=== PATIENT | female | born 1940 | race Caucasian/White ===

== ENCOUNTER 2017-07-16 11:14 | Observation (INO) | payer OTHER ==
[2017-07-16 11:19] VITALS: BMI 25.0
[2017-07-16] MEDS ORDERED: NIFEDIPINE CAP 10 MG ONE (11:42)
[2017-07-16] MEDS ORDERED: NIFEDIPINE CAP 10 MG PO ONE (11:42)
--- NOTE | 2017-07-16 11:55 | DR.GENAD ---
HPI - PCP Primary Care Physician: NFD - HPI Comment HPI Comment: PATIENT FELL FEW DAYS AGO AND INJURED LEFT HIP. EVALUATED AND NO FRACTURE. PAIN INCREASING. BEING VOMITING AND NOW WEAK. NO FEVER OR DYSURIA. - Complaint/Symptoms Chief Complaint Doctors Comments: N/V TIMES FEW DAYS. NOW WEAK AND HAVING FATIGUE. Chief Complaint:: PT. STATES "I THINK I'M DEHYDRATED." PT. C/O NAUSEA/ VOMITING , WEAKNESS, FATIGUE. - Nurses notes reviewed Nurses Notes Review: Yes - Source History Provided: Patient - Mode of Arrival Mode of Arrival: Ambulatory - Timing Onset of Chief Complaint: 07/12/17 Came on: Suddenly - Duration Duration: Constant Duration: Days - Severity Severity: Moderate PMH - PMH Past Medical History: No Past Surgical History: Yes Surgical History: Appendectomy, Thyroidectomy Past Surgical History Comment: OVARIAN CYST REMOVAL, TUBAL LIGATION - Family History History of Family Medical Conditions: No - Social History Does patient currently use any type of tobacco product: No Have you used tobacco products in the last 12 months: No Type of Tobacco Use: None Does any household member use tobacco: No Alcohol Use: None Do you use any recreational Drugs:: No Lives With: Family Lives Where: Home - infectious screening In the last 2 months have you had wt loss of >10#?: NO Have you had fever, night sweats or hemotysis?: No Have you traveled outside the country in the last 6 months?: No Isolation: Standard ROS - Review of Systems Constitutional: Weakness, Fatigue. negative: Chills, Fever Eyes: No Symptoms Reported. negative: Eye Pain, Discharge ENTM: negative: Ear Pain, Nose Discharge, Nose Congestion, Throat Pain Respiratoy: Non-Productive Cough, Short of Breath (ON EXCERTION) Cardiovascular: negative: Chest Pain, Edema Gastrointestinal/Abdominal: Nausea, Vomiting. negative: Abdominal Pain Genitourinary: negative: Dysuria, Frequency, Hematuria Neurological: Weakness. negative: Headache, Dizziness Musculoskeletal: Left, Pelvis, Hip Integumentary: No Symptoms Reported Hematologic/Lymphatic: No Symptoms Reported Endocrine: No Symptoms Reported All Other Systems: Reviewed and Negative PE - Vital Signs Vitals: Temperature 98.6 F Pulse Rate [Left Brachial] 78 Pulse Rate 98 Respiratory Rate 16 Blood Pressure [Left Arm] 139/69 Blood Pressure 213/102 O2 Sat by Pulse Oximetry 98 - General Limitations: No Limitations General Appearance: Alert - Head Head Exam: Normal Inspection - Eyes Eye exam: Normal Appearance - ENT ENT Exam: Normal External Ear Exam External Ear Exam: Normal External Inspection TM/Canal Exam: Bilateral Normal Nose Exam: Normal Nose Exam Mouth Exam: Normal Inspection Throat Exam: Normal Inspection - Neck Neck Exam: Normal Inspection - Chest Chest Inspection: Symmetric Chest Wall Rise - Respiratory Respiratory Exam: Normal Lung Sounds Bilat Respiratory Exam: Bilateral Rhonchi, Lower Rhonchi - Cardiovascular Cardiovascular Exam: Regular Rate, Normal Rhythm, Normal Heart Sounds - Abdominal Exam Abdominal Exam: Normal Bowel Sounds, Soft. negative: Tenderness - Extremities Extremities Exam: Tenderness (LEFT HIP TENDER. SAMUEL.) - Neurologic Neurological Exam: Alert, Oriented X3 - Skin Skin Exam: Normal Color MDM - Additional Information Additional Information Obtained From: Family - Differential Diagnosis Differential Diagnosis: WEAKNESS. LEFT HIP PAIN, DEHYDRATION, N/V, HIP FRACTURE. Course - Treatment Treatment: SEE ORDERS. - Consultation Consultation Comments: DISCUSS PATIENT WITH DR. TILLEY. HE WILL ADMIT PATIENT. - Education/Counseling Education/Counseling: Patient, Family, Education Educated On: Diagnosis, Needs for Follow Up ROR - Labs Reviewed Laboratory Results Reviewed?: Yes Result Diagrams: 07/16/17 12:05 07/16/17 12:05 Laboratory: WBC 5.3 X10^3/uL (3.6-10.0) 07/16/17 12:05 RBC 4.69 X10^6/uL (3.5-5.4) 07/16/17 12:05 Hgb 14.1 g/dL (12.0-16.0) 07/16/17 12:05 Hct 40.1 % (36.0-47.0) 07/16/17 12:05 MCV 85.6 fL (80.0-100.0) 07/16/17 12:05 MCH 30.1 pg (27.0-34.0) 07/16/17 12:05 MCHC 35.2 g/dL (33.0-35.0) H 07/16/17 12:05 RDW 13.2 % (11.6-16.5) 07/16/17 12:05 Plt Count 235 X10^3/uL (150.0-450.0) 07/16/17 12:05 MPV 8.3 fL (7.4-11.0) 07/16/17 12:05 Neut % 73.2 % (42.0-75.0) 07/16/17 12:05 Lymph % 14.4 % (21.0-51.0) L 07/16/17 12:05 [place] % 11.2 % (0.0-13.0) 07/16/17 12:05 Eos % 0.2 % (0.9-2.9) L 07/16/17 12:05 Baso % 1.0 % (0.2-1.0) 07/16/17 12:05 Neut # 3.9 x10^3/uL (2.2-4.8) 07/16/17 12:05 Lymph # 0.8 X10^3/uL (1.3-2.9) L 07/16/17 12:05 [place] # 0.6 x10^3/uL (0.3-0.8) 07/16/17 12:05 Eos # 0.0 x10^3/uL (0.0-0.2) 07/16/17 12:05 Baso # 0.1 X10^3/uL (0.0-0.1) 07/16/17 12:05 Absolute Nucleated RBC 0.0 /100WBC 07/16/17 12:05 Sodium 141 mmol/L (136-145) 07/16/17 12:05 Corrected Sodium 142 mmol/L (136-145) 07/16/17 12:05 Potassium 3.5 mmol/L (3.5-5.1) 07/16/17 12:05 Chloride 103 mmol/L (98-107) 07/16/17 12:05 Carbon Dioxide 27.6 mmol/L (21-32) 07/16/17 12:05 BUN 11 mg/dL (7-18) 07/16/17 12:05 Creatinine 0.89 mg/dL (0.55-1.02) 07/16/17 12:05 Est GFR (MDRD) Af Amer > 60 (>60) 07/16/17 12:05 Est GFR (MDRD) Non-Af > 60 (>60) 07/16/17 12:05 Glucose 124 mg/dL (65-99) H 07/16/17 12:05 Calcium 7.6 mg/dL (8.5-10.1) L 07/16/17 12:05 Corrected Calcium TNP 07/16/17 12:05 Total Bilirubin 0.60 mg/dL (0.2-1.0) 07/16/17 12:05 AST 25 Units/L (15-37) 07/16/17 12:05 ALT 24 Units/L (12-78) 07/16/17 12:05 Alkaline Phosphatase 80 Units/L (46-116) 07/16/17 12:05 Creatine Kinase 215 Units/L (26-192) H 07/16/17 12:05 CK-MB (CK-2) 1.6 ng/mL (0-4.0) 07/16/17 12:05 CK/CKMB % Calc 0.7 % (<4) 07/16/17 12:05 Troponin I < 0.02 ng/mL (0-1.5) 07/16/17 12:05 Total Protein 8.0 g/dL (6.4-8.2) 07/16/17 12:05 Albumin 3.7 g/dL (3.4-5.0) 07/16/17 12:05 Globulin 4.3 g/dL (2.5-4.5) 07/16/17 12:05 Albumin/Globulin Ratio 0.9 Ratio (1.1-2.1) L 07/16/17 12:05 Specimen Type Clean catch urine 07/16/17 13:13 Urine Color Yellow (YELLOW) 07/16/17 13:13 Urine Appearance Clear (CLEAR) 07/16/17 13:13 Urine pH 8.0 (5.0 - 8.0) 07/16/17 13:13 Ur Specific [place] 1.015 (1.000-1.030) 07/16/17 13:13 Urine Protein 2+ (NEGATIVE) 07/16/17 13:13 Urine Glucose (UA) Negative (NEGATIVE) 07/16/17 13:13 Urine Ketones Negative (NEGATIVE) 07/16/17 13:13 Urine Occult Blood 2+ (NEGATIVE) 07/16/17 13:13 Urine Nitrite Negative (NEGATIVE) 07/16/17 13:13 Urine Bilirubin Negative (NEGATIVE) 07/16/17 13:13 Urine Urobilinogen Normal (NORMAL) 07/16/17 13:13 Ur Leukocyte Esterase Negative (NEGATIVE) 07/16/17 13:13 Urine RBC 3-5 /HPF (NEGATIVE) 07/16/17 13:13 Urine WBC 0-1 /HPF (NEGATIVE) 07/16/17 13:13 Ur Squamous Epith Cells Few /HPF (NEGATIVE) 07/16/17 13:13 Amorphous Sediment 1+ /HPF (NEGATIVE) 07/16/17 13:13 Urine Bacteria Negative /HPF (NEGATIVE) 07/16/17 13:13 Ur Culture Indicated? No/not indicated 07/16/17 13:13 - XRAY XRAY Interpreted by: Radiologist XRAY Findings: REPORT DISCUSS WITH PATIENT. - EKG Rhythm: NSR (EKG NOTED) - Diagnosis Discharge Problem: Hypertension Qualifiers: Hypertension type: unspecified Qualified Code(s): I10 - Essential (primary) hypertension Sprain of left hip Qualifiers: Encounter type: initial encounter Qualified Code(s): S73.102A - Unspecified sprain of left hip, initial encounter N&V (nausea and vomiting) Qualifiers: Vomiting type: bilious vomiting Qualified Code(s): R11.14 - Bilious vomiting - Discharge Plan Condition: Stable - Follow ups/Referrals - Instructions
[2017-07-16 12:19] LABS: BASOPHILS # (AUTO) 0.1 X10^3/uL (0.0-0.1); EOSINOPHILS % (AUTO) 0.2 % (0.9-2.9); HEMATOCRIT 40.1 % (36.0-47.0); HEMOGLOBIN 14.1 g/dL (12.0-16.0); LYMPHOCYTES # (AUTO) 0.8 X10^3/uL (1.3-2.9); LYMPHOCYTES % (AUTO) 14.4 % (21.0-51.0); MEAN CORPUSCULAR HEMOGLOBIN 30.1 pg (27.0-34.0); MEAN CORPUSCULAR HGB CONC 35.2 g/dL (33.0-35.0); MEAN CORPUSCULAR VOLUME 85.6 fL (80.0-100.0); MEAN PLATELET VOLUME 8.3 fL (7.4-11.0); MONOCYTES # (AUTO) 0.6 x10^3/uL (0.3-0.8); MONOCYTES % (AUTO) 11.2 % (0.0-13.0); NEUTROPHILS # (AUTO) 3.9 x10^3/uL (2.2-4.8); NEUTROPHILS % (AUTO) 73.2 % (42.0-75.0); PLATELET COUNT 235 X10^3/uL (150.0-450.0); RED BLOOD COUNT 4.69 X10^6/uL (3.5-5.4); RED CELL DISTRIBUTION WIDTH 13.2 % (11.6-16.5); WHITE BLOOD COUNT 5.3 X10^3/uL (3.6-10.0)
[2017-07-16] MEDS ORDERED: TORADOL 30 MG VIAL IVP ONE (12:22)
[2017-07-16] MEDS ORDERED: PEPCID 20 MG IV PREMIX* 20 MG/50 ML BAG IV ONE ×2 (12:22→12:34)
[2017-07-16] MEDS ORDERED: TORADOL 30 MG VIAL ONE (12:34)
[2017-07-16 12:36] LABS: ALANINE AMINOTRANSFERASE 24 Units/L (12-78); ALBUMIN 3.7 g/dL (3.4-5.0); ALKALINE PHOSPHATASE 80 Units/L (46-116); ASPARTATE AMINO TRANSFERASE 25 Units/L (15-37); BLOOD UREA NITROGEN 11 mg/dL (7-18); CALCIUM 7.6 mg/dL (8.5-10.1); CARBON DIOXIDE 27.6 mmol/L (21-32); CHLORIDE 103 mmol/L (98-107); CKMB % 0.7 % (<4); COR NA(FOR HYPERGLY) 142 mmol/L (136-145); CREATINE KINASE 215 Units/L (26-192); CREATINE KINASE MB 1.6 ng/mL (0-4.0); CREATININE 0.89 mg/dL (0.55-1.02); SODIUM 141 mmol/L (136-145); TROPONIN I < 0.02 ng/mL (0-1.5); eGFR BLACK RACES > 60 (>60); eGFR NON BLACK RACES > 60 (>60)
--- NOTE | 2017-07-16 12:37 | RAD ---
HISTORY: 76-year-old female with weakness status post fall 1 week prior. Study: Frontal view of the chest. Comparison: None. Findings: The trachea is midline. The cardiac silhouette is enlarged with prominent perihilar lung markings an d interstitium. The lungs are clear without focal consolidation, effusion or pneumothorax. Soft tiss ues are unremarkable. Osseous structures are unremarkable. IMPRESSION: 1. Cardiomegaly with prominent perihilar lung markings and interstitium. Reported By:
--- NOTE | 2017-07-16 12:57 | CT ---
CT left hip without contrast Indication: Left hip pain after fall 1 week ago Comparison: None Technique: CT images of the left hip were obtained without contrast. Automatic exposure control was u tilized. Findings: There is marked lower lumbar spondylosis with grade 1 anterolisthesis of L5 on S1. Mild deg enerative changes of the left SI joint, pubic symphysis, and left hip are noted. No acute cortical di sruption or malalignment of the left hip is seen. The femoral head is normally seated within the acet abulum. The soft tissues about the left hip are grossly normal. Impression: No acute skeletal injury of the left hip. Multifocal degenerative changes as above. Reported By:
[2017-07-16 13:22] LABS: BILIRUBIN,URINE NEGATIVE (NEGATIVE); BLOOD/HEMOGLOBIN,URINE 2+ (NEGATIVE); GLUCOSE, URINE NEGATIVE (NEGATIVE); KETONES,URINE NEGATIVE (NEGATIVE); LEUKOCYTE ESTERASE ,URINE NEGATIVE (NEGATIVE); NITRITES,URINE NEGATIVE (NEGATIVE); PROTEIN,URINE 2+ (NEGATIVE); UROBILINOGEN,URINE NORMAL (NORMAL)
[2017-07-16 13:30] LABS: APPEARANCE,URINE CLEAR (CLEAR); COLOR,URINE YELLOW (YELLOW); SQUAMOUS EPITHELIAL CELL,UR FEW /HPF (NEGATIVE)
[2017-07-16 13:31] LABS: AMORPHOUS SEDIMENT,UR 1+ /HPF (NEGATIVE); BACTERIA,URINE NEGATIVE /HPF (NEGATIVE)
[2017-07-16] MEDS ORDERED: NS 1000 ML 1,000 ML with POTASSIUM CHLORIDE INJ 10 MEQ VIAL 10 MEQ IV SCH ×2 (14:00)
[2017-07-16] MEDS ORDERED: NS 1000 ML 1,000 ML ONE (16:34)
[2017-07-16] MEDS: NS 1000 ML 1,000 ML IV SCH (16:34)
[2017-07-16 18:36] LABS: CKMB % 0.6 % (<4); CREATINE KINASE 196 Units/L (26-192); CREATINE KINASE MB 1.2 ng/mL (0-4.0); TROPONIN I < 0.02 ng/mL (0-1.5)
[2017-07-16] MEDS: LOPRESSOR TAB 25 MG PO SCH (20:37)
[2017-07-16] MEDS: TYLENOL 325 MG TAB PO PRN (22:11)
[2017-07-17] MEDS ORDERED: COLACE CAP 100 MG PO PRN ×2 (00:59→08:29)
[2017-07-17 01:12] LABS: CKMB % 0.7 % (<4); CREATINE KINASE 174 Units/L (26-192); CREATINE KINASE MB 1.2 ng/mL (0-4.0); TROPONIN I < 0.02 ng/mL (0-1.5)
[2017-07-17] MEDS: NS 1000 ML 1,000 ML IV SCH ×2 (03:54→20:13)
[2017-07-17] MEDS: TYLENOL 325 MG TAB PO PRN ×2 (05:13→20:27)
[2017-07-17 06:20] LABS: EOSINOPHILS # (AUTO) 0.1 x10^3/uL (0.0-0.2); EOSINOPHILS % (AUTO) 1.3 % (0.9-2.9); HEMATOCRIT 35.8 % (36.0-47.0); HEMOGLOBIN 12.5 g/dL (12.0-16.0); LYMPHOCYTES # (AUTO) 1.2 X10^3/uL (1.3-2.9); LYMPHOCYTES % (AUTO) 23.1 % (21.0-51.0); MEAN CORPUSCULAR HEMOGLOBIN 30.1 pg (27.0-34.0); MEAN CORPUSCULAR HGB CONC 34.9 g/dL (33.0-35.0); MEAN CORPUSCULAR VOLUME 86.2 fL (80.0-100.0); MEAN PLATELET VOLUME 8.2 fL (7.4-11.0); MONOCYTES # (AUTO) 0.7 x10^3/uL (0.3-0.8); MONOCYTES % (AUTO) 14.1 % (0.0-13.0); NEUTROPHILS # (AUTO) 3.1 x10^3/uL (2.2-4.8); NEUTROPHILS % (AUTO) 60.5 % (42.0-75.0); PLATELET COUNT 241 X10^3/uL (150.0-450.0); RED BLOOD COUNT 4.15 X10^6/uL (3.5-5.4); RED CELL DISTRIBUTION WIDTH 13.3 % (11.6-16.5); WHITE BLOOD COUNT 5.1 X10^3/uL (3.6-10.0)
[2017-07-17 06:53] LABS: ALANINE AMINOTRANSFERASE 24 Units/L (12-78); ALBUMIN 3.1 g/dL (3.4-5.0); ALKALINE PHOSPHATASE 68 Units/L (46-116); ASPARTATE AMINO TRANSFERASE 23 Units/L (15-37); BLOOD UREA NITROGEN 13 mg/dL (7-18); CALCIUM 6.9 mg/dL (8.5-10.1); CARBON DIOXIDE 26.6 mmol/L (21-32); CHLORIDE 105 mmol/L (98-107); CHOL/HDL RATIO 3.1 (0.0-5.0); CHOLESTEROL 156 mg/dL (0-200); COR CA(FOR HYPOALB) 7.6 mg/dL (8.5-10.1); CREATININE 0.85 mg/dL (0.55-1.02); HDL CHOLESTEROL 50 mg/dL (40-60); MAGNESIUM 2.1 mg/dL (1.7-2.9); SODIUM 141 mmol/L (136-145); TOTAL PROTEIN 6.8 g/dL (6.4-8.2); TRIGLYCERIDES 81 mg/dL (0-150); eGFR BLACK RACES > 60 (>60); eGFR NON BLACK RACES > 60 (>60)
[2017-07-17] MEDS ORDERED: MILK OF MAGNESIA PO PRN (08:29)
[2017-07-17] MEDS ORDERED: MILK OF MAGNESIA ONE (08:29)
[2017-07-17] MEDS: LOPRESSOR TAB 25 MG PO SCH ×2 (08:38→20:13)
[2017-07-17] MEDS ORDERED: GYLCERIN ADULT SUPP RECTAL PRN (08:39)
--- NOTE | 2017-07-17 19:06 | DR.H&P ---
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 PT STATES SHE HAS PAIN RADIATING DOWN HER LEFT LEG. PT HAS PMH OF HYPOTHYROID DISEASE AND OA. PLAN TO ADMIT FOR PAIN CONTROL AND PT EVALUATION. - Past Medical History Past Medical History: Hypothyroidism - Past Surgical History Surgical History: Appendectomy, Thyroidectomy - Family History Family Medical History: [place], Coronary Artery Disease - Social History Does patient currently use any type of tobacco product: No Have you used tobacco products in the last 12 months: No Type of Tobacco Use: None Does any household member use tobacco: No Alcohol Use: None Drug Use: None - Medications Home Medications: Tramadol HCl [ULTRAM 50 MG *] 1 - 2 tab PO TID 07/16/17 [History Confirmed 07/16] - Review of Systems Constitutional: Weakness Eyes: No Symptoms Reported ENT: No Symptoms Reported Respiratory: No Symptoms Reported Gastrointestinal: Constipation Genitourinary: No Symptoms Reported Musculoskeletal: Back Pain, Leg Pain Skin: No Symptoms Reported Neurological: Weakness - Physical Exam Vital Signs: Temperature 98.5 F Pulse Rate [Left Brachial] 67 Pulse Rate 98 Respiratory Rate 18 Blood Pressure [Left Arm] 165/70 Blood Pressure 213/102 O2 Sat by Pulse Oximetry 98 Oriented: Normal Eyes: Normal Ear: Normal Nose: Normal Throat: Normal Respiratory: Clear Throughout Cardiovascular: Normal : Normal Auscultation: Bowel Sounds: Normal Palpation: Normal Tenderness: Normal Skin: Normal Musculoskeletal: Right, Left, Hip, Back:Thoracic, Back:Lumbar Psychiatric: Anxiety Affect: Anxious Speech Pattern: Clear, Appropriate - Assessment/Plan (1) Hypertension Qualifiers: Hypertension type: unspecified Qualified Code(s): I10 - Essential (primary ) hypertension Status: Acute Plan: ADMIT, BP MONITORING, PAIN CONTROL. CT LEFT HIP, PT EVALUATION (2) Left hip pain Status: Acute (3) Sprain of left hip Qualifiers: Encounter type: initial encounter Qualified Code(s): S73.102A - Unspecified sprain of left hip, initial encounter Status: Acute
--- NOTE | 2017-07-17 19:10 | PCM.PROG ---
Progress Note - Progress Note for Day of Date: 07/17/17 - Subjective Subjective: HIP PAIN, LOWER BACK PAIN, CONSTIPATION - Past Medical Family Social History Past Med/Fam/Surg Hx: No changes since H&P Allergies: Allergies No Known Drug Allergies Allergy (Verified 07/16/17 11:19) - Review of Systems ROS: No change since H&P - Vital Signs and I&O's Vital Signs: Temperature 98.5 F Pulse Rate [Left Brachial] 67 Pulse Rate 98 Respiratory Rate 18 Blood Pressure [Left Arm] 165/70 Blood Pressure 213/102 O2 Sat by Pulse Oximetry 98 Intake and Output: Intake & Output 07/15/17 07/16/17 07/17/17 07/18/17 11:59 11:59 11:59 11:59 Intake Total 633 160 Balance 633 160 - Physical Exam Oriented: Normal Eyes: Normal Ear: Normal Nose: Normal Throat: Normal Cardiovascular: Normal : Normal Auscultation: Bowel Sounds: Normal Tenderness: Normal Skin: Normal Musculoskeletal: Right, Left, Hip, Back:Thoracic, Back:Lumbar Psychiatric: Anxiety Affect: Anxious Speech Pattern: Clear, Appropriate - Laboratory and Diagnostics Result Diagrams: 07/17/17 05:48 07/17/17 05:48 Labs: Laboratory WBC 5.1 X10^3/uL (3.6-10.0) 07/17/17 05:48 RBC 4.15 X10^6/uL (3.5-5.4) 07/17/17 05:48 Hgb 12.5 g/dL (12.0-16.0) 07/17/17 05:48 Hct 35.8 % (36.0-47.0) L 07/17/17 05:48 MCV 86.2 fL (80.0-100.0) 07/17/17 05:48 MCH 30.1 pg (27.0-34.0) 07/17/17 05:48 MCHC 34.9 g/dL (33.0-35.0) 07/17/17 05:48 RDW 13.3 % (11.6-16.5) 07/17/17 05:48 Plt Count 241 X10^3/uL (150.0-450.0) 07/17/17 05:48 MPV 8.2 fL (7.4-11.0) 07/17/17 05:48 Neut % 60.5 % (42.0-75.0) 07/17/17 05:48 Lymph % 23.1 % (21.0-51.0) 07/17/17 05:48 [place] % 14.1 % (0.0-13.0) H 07/17/17 05:48 Eos % 1.3 % (0.9-2.9) 07/17/17 05:48 Baso % 1.0 % (0.2-1.0) 07/17/17 05:48 Neut # 3.1 x10^3/uL (2.2-4.8) 07/17/17 05:48 Lymph # 1.2 X10^3/uL (1.3-2.9) L 07/17/17 05:48 [place] # 0.7 x10^3/uL (0.3-0.8) 07/17/17 05:48 Eos # 0.1 x10^3/uL (0.0-0.2) 07/17/17 05:48 Baso # 0.0 X10^3/uL (0.0-0.1) 07/17/17 05:48 Absolute Nucleated RBC 0.2 /100WBC 07/17/17 05:48 Sodium 141 mmol/L (136-145) 07/17/17 05:48 Corrected Sodium TNP 07/17/17 05:48 Potassium 3.5 mmol/L (3.5-5.1) 07/17/17 05:48 Chloride 105 mmol/L (98-107) 07/17/17 05:48 Carbon Dioxide 26.6 mmol/L (21-32) 07/17/17 05:48 BUN 13 mg/dL (7-18) 07/17/17 05:48 Creatinine 0.85 mg/dL (0.55-1.02) 07/17/17 05:48 Est GFR (MDRD) Af Amer > 60 (>60) 07/17/17 05:48 Est GFR (MDRD) Non-Af > 60 (>60) 07/17/17 05:48 Glucose 96 mg/dL (65-99) 07/17/17 05:48 Calcium 6.9 mg/dL (8.5-10.1) L 07/17/17 05:48 Corrected Calcium 7.6 mg/dL (8.5-10.1) L 07/17/17 05:48 Magnesium 2.1 mg/dL (1.7-2.9) 07/17/17 05:48 Total Bilirubin 0.60 mg/dL (0.2-1.0) 07/17/17 05:48 AST 23 Units/L (15-37) 07/17/17 05:48 ALT 24 Units/L (12-78) 07/17/17 05:48 Alkaline Phosphatase 68 Units/L (46-116) 07/17/17 05:48 Creatine Kinase 174 Units/L (26-192) 07/17/17 00:20 CK-MB (CK-2) 1.2 ng/mL (0-4.0) 07/17/17 00:20 CK/CKMB % Calc 0.7 % (<4) 07/17/17 00:20 Troponin I < 0.02 ng/mL (0-1.5) 07/17/17 00:20 Total Protein 6.8 g/dL (6.4-8.2) 07/17/17 05:48 Albumin 3.1 g/dL (3.4-5.0) L 07/17/17 05:48 Globulin 3.7 g/dL (2.5-4.5) 07/17/17 05:48 Albumin/Globulin Ratio 0.8 Ratio (1.1-2.1) L 07/17/17 05:48 Triglycerides 81 mg/dL (0-150) 07/17/17 05:48 Cholesterol 156 mg/dL (0-200) 07/17/17 05:48 LDL Cholesterol, Calc 90 mg/dL (0-100) 07/17/17 05:48 HDL Cholesterol 50 mg/dL (40-60) 07/17/17 05:48 Cholesterol/HDL Ratio 3.1 (0.0-5.0) 07/17/17 05:48 Specimen Type Clean catch urine 07/16/17 13:13 Urine Color Yellow (YELLOW) 07/16/17 13:13 Urine Appearance Clear (CLEAR) 07/16/17 13:13 Urine pH 8.0 (5.0 - 8.0) 07/16/17 13:13 Ur Specific [place] 1.015 (1.000-1.030) 07/16/17 13:13 Urine Protein 2+ (NEGATIVE) 07/16/17 13:13 Urine Glucose (UA) Negative (NEGATIVE) 07/16/17 13:13 Urine Ketones Negative (NEGATIVE) 07/16/17 13:13 Urine Occult Blood 2+ (NEGATIVE) 07/16/17 13:13 Urine Nitrite Negative (NEGATIVE) 07/16/17 13:13 Urine Bilirubin Negative (NEGATIVE) 07/16/17 13:13 Urine Urobilinogen Normal (NORMAL) 07/16/17 13:13 Ur Leukocyte Esterase Negative (NEGATIVE) 07/16/17 13:13 Urine RBC 3-5 /HPF (NEGATIVE) 07/16/17 13:13 Urine WBC 0-1 /HPF (NEGATIVE) 07/16/17 13:13 Ur Squamous Epith Cells Few /HPF (NEGATIVE) 07/16/17 13:13 Amorphous Sediment 1+ /HPF (NEGATIVE) 07/16/17 13:13 Urine Bacteria Negative /HPF (NEGATIVE) 07/16/17 13:13 Ur Culture Indicated? No/not indicated 07/16/17 13:13 - Plan (1) Hypertension Status: Acute Qualifiers: Hypertension type: unspecified Qualified Code(s): I10 - Essential (primary ) hypertension Plan: CONTINUE BP MONITORING. REVIEWED CE AND EKG WITH PT. REPEAT AM LABS AND CXR (2) Left hip pain Status: Acute Plan: PT, PAIN CONTROL (3) Sprain of left hip Status: Acute Qualifiers: Encounter type: initial encounter Qualified Code(s): S73.102A - Unspecified sprain of left hip, initial encounter (4) Hypothyroidism associated with surgical procedure Status: Acute Plan: TSH AND FREE T4 LEVELS
[2017-07-17 19:38] LABS: FREE T4 (FREE THYROXINE) 1.13 ng/dL (0.76-1.46); TSH (3RD GENERATION) 2.959 uIU/mL (0.358-3.74)
[2017-07-18] MEDS: NS 1000 ML 1,000 ML IV SCH (05:54)
[2017-07-18 06:08] LABS: BASOPHILS % (AUTO) 1.1 % (0.2-1.0); EOSINOPHILS # (AUTO) 0.1 x10^3/uL (0.0-0.2); EOSINOPHILS % (AUTO) 2.3 % (0.9-2.9); HEMATOCRIT 37.4 % (36.0-47.0); HEMOGLOBIN 12.8 g/dL (12.0-16.0); LYMPHOCYTES # (AUTO) 1.1 X10^3/uL (1.3-2.9); LYMPHOCYTES % (AUTO) 23.6 % (21.0-51.0); MEAN CORPUSCULAR HEMOGLOBIN 29.8 pg (27.0-34.0); MEAN CORPUSCULAR HGB CONC 34.2 g/dL (33.0-35.0); MEAN PLATELET VOLUME 8.4 fL (7.4-11.0); MONOCYTES # (AUTO) 0.5 x10^3/uL (0.3-0.8); MONOCYTES % (AUTO) 11.8 % (0.0-13.0); NEUTROPHILS # (AUTO) 2.7 x10^3/uL (2.2-4.8); NEUTROPHILS % (AUTO) 61.2 % (42.0-75.0); PLATELET COUNT 228 X10^3/uL (150.0-450.0); RED CELL DISTRIBUTION WIDTH 13.1 % (11.6-16.5); WHITE BLOOD COUNT 4.5 X10^3/uL (3.6-10.0)
[2017-07-18 06:23] LABS: ALANINE AMINOTRANSFERASE 21 Units/L (12-78); ALBUMIN 3.2 g/dL (3.4-5.0); ALKALINE PHOSPHATASE 74 Units/L (46-116); ASPARTATE AMINO TRANSFERASE 17 Units/L (15-37); BLOOD UREA NITROGEN 15 mg/dL (7-18); CALCIUM 6.9 mg/dL (8.5-10.1); CARBON DIOXIDE 27.2 mmol/L (21-32); CHLORIDE 105 mmol/L (98-107); COR CA(FOR HYPOALB) 7.5 mg/dL (8.5-10.1); COR NA(FOR HYPERGLY) 142 mmol/L (136-145); SODIUM 141 mmol/L (136-145); eGFR BLACK RACES > 60 (>60); eGFR NON BLACK RACES 57 (>60)
[2017-07-18] MEDS ORDERED: MAG-OX TAB PO PRN (06:28)
[2017-07-18] MEDS ORDERED: POTASSIUM CHLORIDE LIQ 20 MEQ UDC PO PRN (06:28)
[2017-07-18] MEDS ORDERED: MAGNESIUM SULFATE 1 GM/100 mL PREMIX 1 GM/100 ML BAG IV PRN (06:28)
[2017-07-18] MEDS ORDERED: K-RIDER 10 MEQ/NS 100 ML 10 MEQ/100 ML BAG IV PRN (06:28)
[2017-07-18] MEDS ORDERED: POTASSIUM CHL 40 MEQ/NS 0.45% 500 ML IV PRN (06:28)
[2017-07-18] MEDS ORDERED: POTASSIUM CHL 60 MEQ/NS 0.45% 500 ML IV PRN (06:28)
[2017-07-18] MEDS ORDERED: K-LYTE EFFERVESCENT PO PRN (06:28)
--- NOTE | 2017-07-18 06:39 | RAD ---
HISTORY: Hypertension Study: Chest AP portable Comparison: 07/16/2017 Findings: The heart is enlarged. No congestive heart failure is noted. No acute alveolar infiltrates or pleural effusions are identified. The bony thorax is unremarkable. IMPRESSION: Cardiomegaly without congestive heart failure No infiltrates Reported By:
[2017-07-18] MEDS ORDERED: TORADOL 30 MG VIAL IVP ONE (08:26)
[2017-07-18 08:42] VITALS: BP 147/70
[2017-07-18] MEDS: LOPRESSOR TAB 25 MG PO SCH (08:48)
--- NOTE | 2017-07-18 10:53 | MRI ---
HISTORY: Injury, fall, low back pain, left-sided weakness Study: MRI lumbar spine without contrast Comparison: None Technique: Multi planar multi sequence noncontrast imaging Findings: The vertebral body alignment is normal. The vertebral body bone signal is normal with the exception o f multilevel degenerative endplate changes. The disc levels are evaluated as follows: T12-L1 level: No evidence for compressive disc disease. The neural foramina are patent. The joints ar e normal. L1-2 level: There is marked disc degeneration. Broad-based disc osteophyte formation effaces the thec al sac and contributes along with spondylitic change to lateral recess and foraminal narrowing bilate rally right worse than left. Bilateral facet arthropathy is present. L2-3 level: There is marked disc degeneration with broad-based disc osteophyte formation effacing the thecal sac and contributing along with facet arthropathy to lateral recess and foraminal narrowing b ilaterally right greater than left L3-4 level: Broad-based disc protrusion effaces the thecal sac and contributes along with bilateral f acet arthropathy and some pedicular shortening to marked lateral recess and foraminal narrowing bilat erally left worse than right. L4-5 level: Broad-based disc protrusion effaces the thecal sac . There is a focal leftward disc protr usion which contributes along with facet arthropathy to marked lateral recess and foraminal narrowing on the left. There is mild lateral recess narrowing on the right. L5-S1 level: There is no evidence for compressive disc disease. The neural foramina are patent. Mild bilateral facet arthropathy is present. IMPRESSION: As above Reported By:
== END 2017-07-18 12:20 | disposition home or self-care (01) | DRG 556 ==
LOC: ER 11:37 → INTOOBSV 15:19 → UNDOADMIN 15:19 → OBS 15:19
PROVIDERS: ADMIT Internal Medicine; ATTEND Internal Medicine
DX: M25.552 Pain in left hip (principal); S73.102A Unspecified sprain of left hip, initial encounter; W00.2XXA Other fall from one level to another due to ice and snow, initial encounter; R11.14 Bilious vomiting; R53.1 Weakness; I10 Essential (primary) hypertension; I51.7 Cardiomegaly; R94.31 Abnormal electrocardiogram [ECG] [EKG]; R26.89 Other abnormalities of gait and mobility; E03.8 Other specified hypothyroidism; M54.5 Low back pain; M51.36 Other intervertebral disc degeneration, lumbar region
CPT/HCPCS: 36415; 71045; 72148; 73700; 80053; 80061; 81001; 82550; 82553; 83735; 84132; 84439; 84443; 84484; 85025; 93005; 93010; 94760; 96365; 96374; 99284; A4222; S0028; G0378; J1885; J3480

== ENCOUNTER 2017-08-08 05:29 | Emergency (ER) | payer OTHER ==
[2017-08-08 05:36] VITALS: BMI 25.0
[2017-08-08] MEDS ORDERED: ZOFRAN INJ 4 MG VIAL ONE (05:50)
--- NOTE | 2017-08-08 05:53 | DR.GENAD ---
HPI - PCP Primary Care Physician: JAREK - Complaint/Symptoms Chief Complaint Doctors Comments: ABDOMINAL PAIN WITH NAUSEA SINCE LAST NIGHT. BP ELEVATED. Chief Complaint:: STOMACH PAIN, HIGH BLOOD PRESSURE - Nurses notes reviewed Nurses Notes Review: Yes - Source History Provided: Patient - Mode of Arrival Mode of Arrival: Ambulatory - Timing Onset of Chief Complaint: 08/08/17 Came on: Suddenly - Duration Duration: Constant Duration: Hours PMH - PMH Past Medical History: Yes Past Medical History: Arthritis, Hypertension, Hypothyroidism Past Surgical History: Yes Surgical History: Appendectomy, CURTAIN STRETCHER Surgery, Thyroidectomy - Family History History of Family Medical Conditions: Yes Family Medical History: [place], Coronary Artery Disease - Social History Does patient currently use any type of tobacco product: No Have you used tobacco products in the last 12 months: No Type of Tobacco Use: None Does any household member use tobacco: No Alcohol Use: None Do you use any recreational Drugs:: No Lives With: Alone Lives Where: Home - infectious screening In the last 2 months have you had wt loss of >10#?: NO Have you had fever, night sweats or hemotysis?: No Have you traveled outside the country in the last 6 months?: No Isolation: Standard ROS - Review of Systems Constitutional: No Symptoms Reported Eyes: No Symptoms Reported ENTM: No Symptoms Reported Respiratoy: No Symptoms Reported Cardiovascular: No Symptoms Reported Gastrointestinal/Abdominal: No Symptoms Reported Genitourinary: No Symptoms Reported Neurological: No Symptoms Reported Musculoskeletal: No Symptoms Reported Integumentary: No Symptoms Reported Hematologic/Lymphatic: No Symptoms Reported Endocrine: No Symptoms Reported All Other Systems: Reviewed and Negative PE - Vital Signs Vitals: Temperature 98 F Pulse Rate 63 Respiratory Rate 16 Blood Pressure [Left Arm] 152/70 Blood Pressure 209/93 O2 Sat by Pulse Oximetry 99 - General Limitations: No Limitations General Appearance: Alert - Head Head Exam: Normal Inspection - Eyes Eye exam: Normal Appearance - ENT ENT Exam: Normal External Ear Exam TM/Canal Exam: Bilateral Normal Nose Exam: Normal Nose Exam Mouth Exam: Normal Inspection Throat Exam: Normal Inspection - Neck Neck Exam: Normal Inspection - Chest Chest Inspection: Symmetric Chest Wall Rise - Respiratory Respiratory Exam: Normal Lung Sounds Bilat Respiratory Exam: Bilateral Clear to Auscultation - Cardiovascular Cardiovascular Exam: Regular Rate, Normal Rhythm, Normal Heart Sounds - Abdominal Exam Abdominal Exam: Normal Bowel Sounds, Soft. negative: Distention ROR - Labs Reviewed Result Diagrams: 08/08/17 05:55 08/08/17 05:55 Laboratory: WBC 7.0 X10^3/uL (3.6-10.0) 08/08/17 05:55 RBC 4.19 X10^6/uL (3.5-5.4) 08/08/17 05:55 Hgb 12.6 g/dL (12.0-16.0) 08/08/17 05:55 Hct 35.8 % (36.0-47.0) L 08/08/17 05:55 MCV 85.4 fL (80.0-100.0) 08/08/17 05:55 MCH 30.1 pg (27.0-34.0) 08/08/17 05:55 MCHC 35.2 g/dL (33.0-35.0) H 08/08/17 05:55 RDW 13.2 % (11.6-16.5) 08/08/17 05:55 Plt Count 212 X10^3/uL (150.0-450.0) 08/08/17 05:55 MPV 9.0 fL (7.4-11.0) 08/08/17 05:55 Neut % 81.2 % (42.0-75.0) H 08/08/17 05:55 Lymph % 8.7 % (21.0-51.0) L 08/08/17 05:55 [place] % 7.7 % (0.0-13.0) 08/08/17 05:55 Eos % 1.5 % (0.9-2.9) 08/08/17 05:55 Baso % 0.9 % (0.2-1.0) 08/08/17 05:55 Neut # 5.7 x10^3/uL (2.2-4.8) H 08/08/17 05:55 Lymph # 0.6 X10^3/uL (1.3-2.9) L 08/08/17 05:55 [place] # 0.5 x10^3/uL (0.3-0.8) 08/08/17 05:55 Eos # 0.1 x10^3/uL (0.0-0.2) 08/08/17 05:55 Baso # 0.1 X10^3/uL (0.0-0.1) 08/08/17 05:55 Absolute Nucleated RBC 0.0 /100WBC 08/08/17 05:55 Sodium 142 mmol/L (136-145) 08/08/17 05:55 Corrected Sodium TNP 08/08/17 05:55 Potassium 3.5 mmol/L (3.5-5.1) 08/08/17 05:55 Chloride 105 mmol/L (98-107) 08/08/17 05:55 Carbon Dioxide 26.7 mmol/L (21-32) 08/08/17 05:55 BUN 14 mg/dL (7-18) 08/08/17 05:55 Creatinine 0.94 mg/dL (0.55-1.02) 08/08/17 05:55 Est GFR (MDRD) Af Amer > 60 (>60) 08/08/17 05:55 Est GFR (MDRD) Non-Af > 60 (>60) 08/08/17 05:55 Glucose 108 mg/dL (65-99) H 08/08/17 05:55 Calcium 6.9 mg/dL (8.5-10.1) L 08/08/17 05:55 Corrected Calcium TNP 08/08/17 05:55 Total Bilirubin 0.50 mg/dL (0.2-1.0) 08/08/17 05:55 AST 17 Units/L (15-37) 08/08/17 05:55 ALT 14 Units/L (12-78) 08/08/17 05:55 Alkaline Phosphatase 101 Units/L (46-116) 08/08/17 05:55 Creatine Kinase 110 Units/L (26-192) 08/08/17 05:55 CK-MB (CK-2) 1.2 ng/mL (0-4.0) 08/08/17 05:55 CK/CKMB % Calc 1.1 % (<4) 08/08/17 05:55 Troponin I < 0.02 ng/mL (0-1.5) 08/08/17 05:55 Total Protein 7.3 g/dL (6.4-8.2) 08/08/17 05:55 Albumin 3.6 g/dL (3.4-5.0) 08/08/17 05:55 Globulin 3.7 g/dL (2.5-4.5) 08/08/17 05:55 Albumin/Globulin Ratio 1.0 Ratio (1.1-2.1) L 08/08/17 05:55 Amylase 19 Units/L (25-115) L 08/08/17 05:55 Lipase 157 Units/L (73-393) 08/08/17 05:55 Specimen Type Clean catch urine 08/08/17 08:08 Urine Color Yellow (YELLOW) 08/08/17 08:08 Urine Appearance Clear (CLEAR) 08/08/17 08:08 Urine pH 8.0 (5.0 - 8.0) 08/08/17 08:08 Ur Specific [place] 1.010 (1.000-1.030) 08/08/17 08:08 Urine Protein Negative (NEGATIVE) 08/08/17 08:08 Urine Glucose (UA) Negative (NEGATIVE) 08/08/17 08:08 Urine Ketones Negative (NEGATIVE) 08/08/17 08:08 Urine Occult Blood 2+ (NEGATIVE) 08/08/17 08:08 Urine Nitrite Negative (NEGATIVE) 08/08/17 08:08 Urine Bilirubin Negative (NEGATIVE) 08/08/17 08:08 Urine Urobilinogen Normal (NORMAL) 08/08/17 08:08 Ur Leukocyte Esterase Negative (NEGATIVE) 08/08/17 08:08 Urine RBC 3-5 /HPF (NEGATIVE) 08/08/17 08:08 Urine WBC 0-2 /HPF (NEGATIVE) 08/08/17 08:08 Ur Squamous Epith Cells Negative /HPF (NEGATIVE) 08/08/17 08:08 Urine Bacteria Negative /HPF (NEGATIVE) 08/08/17 08:08 Ur Culture Indicated? No/not indicated 08/08/17 08:08 - Discharge Plan Condition: Stable - Follow ups/Referrals Follow ups/Referrals: CANDE SIMON [Primary Care Provider] - 3 days - Instructions Instructions: Abdominal Pain, Adult, [id number], Hypertension, [id number] Additional Instructions: RETURN TO ED IF WORSE.
[2017-08-08] MEDS ORDERED: NS 1000 ML 1,000 ML IV SCH (06:00)
[2017-08-08] MEDS ORDERED: ZOFRAN INJ 4 MG VIAL IVP ONE (06:00)
[2017-08-08] MEDS ORDERED: NS 1000 ML 0 ML ONE (06:03)
[2017-08-08] MEDS ORDERED: NS 250 ML IV 250 ML IV ONE (06:06)
[2017-08-08 06:12] LABS: BASOPHILS # (AUTO) 0.1 X10^3/uL (0.0-0.1); BASOPHILS % (AUTO) 0.9 % (0.2-1.0); EOSINOPHILS # (AUTO) 0.1 x10^3/uL (0.0-0.2); EOSINOPHILS % (AUTO) 1.5 % (0.9-2.9); HEMATOCRIT 35.8 % (36.0-47.0); HEMOGLOBIN 12.6 g/dL (12.0-16.0); LYMPHOCYTES # (AUTO) 0.6 X10^3/uL (1.3-2.9); LYMPHOCYTES % (AUTO) 8.7 % (21.0-51.0); MEAN CORPUSCULAR HEMOGLOBIN 30.1 pg (27.0-34.0); MEAN CORPUSCULAR HGB CONC 35.2 g/dL (33.0-35.0); MEAN CORPUSCULAR VOLUME 85.4 fL (80.0-100.0); MONOCYTES # (AUTO) 0.5 x10^3/uL (0.3-0.8); MONOCYTES % (AUTO) 7.7 % (0.0-13.0); NEUTROPHILS # (AUTO) 5.7 x10^3/uL (2.2-4.8); NEUTROPHILS % (AUTO) 81.2 % (42.0-75.0); PLATELET COUNT 212 X10^3/uL (150.0-450.0); RED BLOOD COUNT 4.19 X10^6/uL (3.5-5.4); RED CELL DISTRIBUTION WIDTH 13.2 % (11.6-16.5)
[2017-08-08 06:21] LABS: BLOOD UREA NITROGEN 14 mg/dL (7-18); CALCIUM 6.9 mg/dL (8.5-10.1); CARBON DIOXIDE 26.7 mmol/L (21-32); CHLORIDE 105 mmol/L (98-107); CREATININE 0.94 mg/dL (0.55-1.02); SODIUM 142 mmol/L (136-145); TROPONIN I < 0.02 ng/mL (0-1.5); eGFR BLACK RACES > 60 (>60); eGFR NON BLACK RACES > 60 (>60)
[2017-08-08 06:28] LABS: ALANINE AMINOTRANSFERASE 14 Units/L (12-78); ALBUMIN 3.6 g/dL (3.4-5.0); ALKALINE PHOSPHATASE 101 Units/L (46-116); AMYLASE 19 Units/L (25-115); ASPARTATE AMINO TRANSFERASE 17 Units/L (15-37); CKMB % 1.1 % (<4); CREATINE KINASE 110 Units/L (26-192); CREATINE KINASE MB 1.2 ng/mL (0-4.0); LIPASE 157 Units/L (73-393); TOTAL PROTEIN 7.3 g/dL (6.4-8.2)
[2017-08-08] MEDS ORDERED: NIFEDIPINE CAP 10 MG PO ONE (06:48)
--- NOTE | 2017-08-08 07:16 | RAD ---
Examination: Abdomen series with PA chest History: Abdominal pain Findings:PA upright chest demonstrates normal heart size with diffuse vascular and interstitial promi nence which may be chronic. No evidence for pneumothorax or pneumoperitoneum. Additional supine and e rect views of abdomen demonstrate slight nonobstructive gaseous distention of the colon. No definite ascites, mass or pathologic calcification is seen. There are surgical sutures in the lower abdomen mi dline. Impression: No acute chest or abdominal pathology identified. Reported By:
[2017-08-08 08:17] LABS: BILIRUBIN,URINE NEGATIVE (NEGATIVE); BLOOD/HEMOGLOBIN,URINE 2+ (NEGATIVE); GLUCOSE, URINE NEGATIVE (NEGATIVE); KETONES,URINE NEGATIVE (NEGATIVE); LEUKOCYTE ESTERASE ,URINE NEGATIVE (NEGATIVE); NITRITES,URINE NEGATIVE (NEGATIVE); PROTEIN,URINE NEGATIVE (NEGATIVE); UROBILINOGEN,URINE NORMAL (NORMAL)
[2017-08-08 08:23] LABS: APPEARANCE,URINE CLEAR (CLEAR); BACTERIA,URINE NEGATIVE /HPF (NEGATIVE); COLOR,URINE YELLOW (YELLOW); SQUAMOUS EPITHELIAL CELL,UR NEGATIVE /HPF (NEGATIVE)
[2017-08-08 08:45] VITALS: BP 168/77
== END 2017-08-08 08:40 | disposition home or self-care (01) ==
LOC: ER 05:29
DX: R10.84 Generalized abdominal pain (principal); I10 Essential (primary) hypertension
CPT/HCPCS: 36415; 74022; 80053; 81001; 82150; 82550; 82553; 83690; 84484; 85025; 96365; 96374; 99282; 99283; A4222; J2405

== ENCOUNTER 2017-08-09 12:07 | Emergency (ER) | payer OTHER ==
[2017-08-09 12:15] VITALS: BMI 25.0
[2017-08-09] MEDS ORDERED: LASIX PO STA (12:51)
[2017-08-09] MEDS ORDERED: COZAAR PO SCH (13:00)
--- NOTE | 2017-08-09 13:05 | DR.GENAD ---
HPI - PCP Primary Care Physician: AURORA - Complaint/Symptoms Chief Complaint Doctors Comments: Patient is complaining that her blood pressure is elevated and she has been taking her blood pressure medicines without improvement. States she is taking Lopressor 25mg twice daily and her blood pressure was elevated to 190/86 and she took another Lopressor but her heart rate came down and her blood pressure was still elevated. She denies chest pain, SOB,nausea or vomiting. States she see Nohelia Gardner and has an appointment next month and they area worried that her blood pressure stays elevated. Patient was in the emergency room yesterday with the same problems. Family states they gave her some fluids and sent her home. Patient denies swelling of hands or feet. State she is taking Mobic 7.5mg for arthritis and ultram for pain. States she has not had a problem with her blood pressure until she was hospitalized recently. Chief Complaint:: PT C/O HIGH BLOOD PRESSURE. PT WAS SEEN ING THE ER DEPT YESTERDAY FOR HIGH BLOOD PRESSURE. PT IS STILL HAVING HIGH BLOOD PRESSURE. FAMILY IS WORRIED ABOUT PT'S BLOOD PRESSURE. - Nurses notes reviewed Nurses Notes Review: Yes - Source History Provided: Patient - Mode of Arrival Mode of Arrival: Ambulatory - Timing Onset of Chief Complaint: 08/09/17 Came on: Gradually - Duration Duration: Intermittent How lon Duration: Days - Location Location: high blood pressure - Severity Severity: Mild - Modifying Factors Worsens:: nothing Improves:: nothing PMH - PMH Past Medical History: Yes Past Medical History: Arthritis, Hypertension, Hypothyroidism Past Surgical History: Yes Surgical History: Appendectomy, [employer] Surgery, Thyroidectomy - Family History History of Family Medical Conditions: Yes Family Medical History: [place], Coronary Artery Disease - Social History Does any household member use tobacco: No Alcohol Use: None Do you use any recreational Drugs:: No Lives With: Family Lives Where: Home - infectious screening In the last 2 months have you had wt loss of >10#?: NO Have you had fever, night sweats or hemotysis?: No Have you traveled outside the country in the last 6 months?: No Isolation: Standard ROS - Review of Systems Constitutional: No Symptoms Reported. negative: See HPI, Chills, Diaphoresis, Fever, Malaise, Weakness, Irritable, Fatigue, Loss of Appetite, Other Eyes: No Symptoms Reported. negative: See HPI, Eye Pain, Blurred Vision, Tearing, Discharge, Photophobia, Diplopia, Other ENTM: No Symptoms Reported Respiratoy: No Symptoms Reported. negative: See HPI, Productive Cough, Non- Productive Cough, Moist Cough, Dry Cough, Hacking Cough, Barking Cough, Brassy Cough, Orthopnea, Short of Breath, Stridor, Wheezing, Hemoptysis, Other Cardiovascular: No Symptoms Reported. negative: See HPI, Chest Pain, Edema, Palpitations, Syncope, Cyanosis, Skin Mottling, Other Gastrointestinal/Abdominal: No Symptoms Reported. negative: See HPI, Abdominal Pain, Constipation, Diarrhea, Nausea, Vomiting, Food Intolerance, Other Genitourinary: No Symptoms Reported. negative: See HPI, Discharge, Dysuria, Frequency, Hematuria, Pain, Bleeding, Other Neurological: No Symptoms Reported. negative: See HPI, Anxiety, Depressed, Emotional Problems, Headache, Numbness, Paresthesia, Pre-existing Deficit, Seizure, Tingling, Tremors, Weakness, Dizziness, Problems Walking, Speech Problem, Other Musculoskeletal: No Symptoms Reported Integumentary: No Symptoms Reported. negative: See HPI, Change in Color, Change in Hair/Nails, Dryness, Lesions, Lumps, Rash, Itching, Wound, Bruises, Juandice, Other Hematologic/Lymphatic: No Symptoms Reported. negative: See HPI, Anemia, Blood Clots, Easy Bleeding, Easy Bruising, Swollen Glands, Lymphadenopathy, Other Endocrine: No Symptoms Reported Psychiatric: No Symptoms Reported PE - Vital Signs Vitals: Temperature 97.5 F Pulse Rate 62 Respiratory Rate 18 Blood Pressure [Left Arm] 168/77 Blood Pressure 198/88 O2 Sat by Pulse Oximetry 98 - General Limitations: No Limitations General Appearance: Alert, In No Apparent Distress - Head Head Exam: Normal Inspection, Atraumatic, Normocephalic - Eyes Eye exam: Normal Appearance, PERRL, EOMI. negative: Scleral Icterus, Conjunctival Injection, Nystagmus, Miosis, Mydrasis, Periorbital Swelling, Periorbital Tenderness, Other - ENT ENT Exam: Normal Exam, Normal Oropharynx, Normal External Ear Exam, Mucous Membranes Moist, TM's Normal Bilaterally External Ear Exam: Normal External Inspection TM/Canal Exam: Bilateral Normal Nose Exam: Normal Nose Exam Mouth Exam: Normal Inspection Throat Exam: Normal Inspection. negative: Tonsillar Erythema, Tonsillomegaly, Tonsillar Exudate, R Peritonsillar Mass, L Peritonsillar Mass, Muffled Voice, Other - Neck Neck Exam: Normal Inspection, Full ROM, Trachea Midline. negative: Tenderness, Meningismus, Lymphadenopathy, Thyromegaly, Other - Chest Chest Inspection: Normal Inspection, Symmetric Chest Wall Rise - Respiratory Respiratory Exam: Normal Lung Sounds Bilat Respiratory Exam: Bilateral Clear to Auscultation - Cardiovascular Cardiovascular Exam: Regular Rate, Normal Rhythm, Bradycardia, Normal Heart Sounds, Systolic Murmur - Abdominal Exam Abdominal Exam: Normal Inspection, Normal Bowel Sounds, Soft Abdominal Tenderness: negative: RUQ, RLQ, LUQ, LLQ, Epigastrium, Suprapubic, Diffuse, Mild, Moderate, Severe, Other - Extremities Extremities Exam: Normal Inspection, Full ROM, Normal Capillary Refill. negative: Tenderness, Edema, Joint Swelling, Calf Tenderness, Other - Back Back Exam: Normal Inspection, Full ROM. negative: Tenderness, (R) CVA Tenderness, (L) CVA Tenderness, Muscle Spasm, Paraspinal Tenderness, Vertebral Tenderness, Rashes, (R) Sciatic Notch Tenderness, (L) Sciatic Notch Tendern, (R ) Straight Leg Raise, (L) Straight Leg Raise, Other - Neurologic Neurological Exam: Alert, Oriented X3, CN II-XII Intact, Reflexes Normal. negative: Normal Gait (gait not tested) - Psychiatric Psychiatric Exam: Normal Affect, Normal Mood. negative: Depressed, Agitated, Anxious, Flat Affect, Manic, Homicidal Ideation, Suicidal Ideation, Other - Skin Skin Exam: Warm, Intact, Normal Color. negative: Dry, Rash, Cyanosis, Diaphoresis, Erythema, Pallor, Mottled, Other ROR - Labs Reviewed Laboratory Results Reviewed?: Yes (all lab results from 08/08/17 reviewed and discussed with family) - Diagnosis Discharge Problem: Essential hypertension, Hypocalcemia, Hyperglycemia - Discharge Plan Disposition: 01 HOME, SELF-CARE Condition: Stable Prescriptions: Losartan Potassium [LOSARTAN POTASSIUM 50 MG *] 50 mg PO DAILY #30 tab - Follow ups/Referrals Follow ups/Referrals: CANDE GARDNER [Primary Care Provider] - 3 days - Instructions Instructions: Hypertension, [id number], Hypocalcemia, Adult, Hyperglycemia
[2017-08-09] MEDS ORDERED: LASIX ONE (13:08)
[2017-08-09 13:31] VITALS: BP 167/80
== END 2017-08-09 13:31 | disposition home or self-care (01) ==
LOC: ER 12:17
DX: I10 Essential (primary) hypertension (principal); E83.51 Hypocalcemia; R73.9 Hyperglycemia, unspecified
CPT/HCPCS: 99282